=== PATIENT | male | born 1995 | race Caucasian/White ===

== ENCOUNTER 2023-03-28 12:44 | Emergency (ER) | payer SELFPAY ==
[~2023-03-28] VITALS: Ht 185 cm; Wt 97.5 kg
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
[2023-03-28 13:08] LABS: BASOPHILS # (AUTO) 0.1 10^3/uL (0.0-0.1); BASOPHILS % (AUTO) 1 % (0-10); EOSINOPHILS # (AUTO) 0.2 10^3/uL (0.0-0.3); EOSINOPHILS % (AUTO) 2 % (0-10); HEMATOCRIT 45 % (40-54); HEMOGLOBIN 15.7 g/dL (13.3-17.7); LYMPHOCYTES # (AUTO) 2.8 10^3/uL (1.0-4.0); LYMPHOCYTES % (AUTO) 28 % (12-44); MEAN CORPUSCULAR HEMOGLOBIN 32 pg (25-34); MEAN CORPUSCULAR HGB CONC 35 g/dL (32-36); MEAN CORPUSCULAR VOLUME 91 fL (80-99); MONOCYTES # (AUTO) 0.9 10^3/uL (0.0-1.0); MONOCYTES % (AUTO) 9 % (0-12); NEUTROPHILS # (AUTO) 5.8 10^3/uL (1.8-7.8); NEUTROPHILS % (AUTO) 59 % (42-75); PLATELET COUNT 372 10^3/uL (130-400); WHITE BLOOD COUNT 9.8 10^3/uL (4.3-11.0)
[2023-03-28 13:20] LABS: CALCIUM 9.6 MG/DL (8.5-10.1)
[2023-03-28 13:21] LABS: INR 1.1 (0.8-1.4)
[2023-03-28 13:25] LABS: CREATININE SERUM 0.79 MG/DL (0.60-1.30)
[2023-03-28] MEDS ORDERED: NS IV 1000 ML 1,000 ML IV STA (13:31)
[2023-03-28] MEDS ORDERED: IOHEXOL 350 MG/ML 100 ML (OMNIPAQUE 350) VIAL IV ONE (13:45)
[2023-03-28] MEDS ORDERED: fentaNYL INJ 100 MCG/2 ML AMP IVP ONE (13:45)
[2023-03-28] MEDS ORDERED: NS 100 ML (IVPB) BAG IV ONE (13:45)
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
[2023-03-28 15:23] VITALS: BP 157/96
== END 2023-03-28 15:20 | disposition home or self-care (01) ==
LOC: ER 12:49
DX: K92.0 Hematemesis (principal); R07.89 Other chest pain; M54.2 Cervicalgia; R10.13 Epigastric pain; F17.210 Nicotine dependence, cigarettes, uncomplicated; Z28.310 Unvaccinated for COVID-19
CPT/HCPCS: 36415; 71045; 71260; 74177; 80048; 85025; 85610; 85730; 93005